=== PATIENT | female | born 1955 | race Caucasian/White ===

== ENCOUNTER 2016-12-02 12:06 | Day surgery (SDC) | payer OTHER ==
[~2016-12-02] VITALS: Ht 157.5 cm; Wt 87.1 kg
[2016-12-02] MEDS ORDERED: LEVOTHYROXINE137 MCG PO (12:32)
[2016-12-02] MEDS ORDERED: VERAPAMIL ER240 MG PO (12:32)
[2016-12-02] MEDS ORDERED: PROAIR HFA8.5 GM INH (12:33)
[2016-12-02] MEDS ORDERED: GABAPENTIN300 MG PO (12:33)
[2016-12-02] MEDS ORDERED: QVAR8.7 G1 (12:33)
[2016-12-02] MEDS ORDERED: LANSOPRAZOLE30 MG PO (12:33)
[2016-12-02] MEDS ORDERED: ALLEGRA ALLERG180 MG PO (12:34)
[2016-12-02] MEDS ORDERED: HYDROCODON-ACE1 EA10 PO (12:34)
--- NOTE | 2016-12-02 14:26 | NUR ---
12/02/16 1426 Bill Burroughs PT PASSING LARGE AMOUNTS OF AIR FROM HER COLON.
--- NOTE | 2016-12-08 01:42 | OR ---
[facility] [address], [place] [address] Signed PREOPERATIVE DIAGNOSES: Persistent left-sided abdominal pain. History of hiatal hernia repair with some amount of recurrent hiatal hernia.([facility]). POSTOPERATIVE DIAGNOSIS: Left-sided sigmoid diverticulosis. No evidence of neoplasm or inflammation. PROCEDURE: Total colonoscopy to cecum. SURGEON: Abelardo. ANESTHESIA: Intravenous sedation, fentanyl 200 mcg, Versed 7 mg. INDICATION: This is a 61-year-old, white woman is a patient of Dr. Gerardo and has numerous medical issues from the past. She has had le ft-sided chest and abdominal wall pain. CT scan showed only diverticular changes. She has undergone anti-reflux operation, Luther fundoplication twice at [facility] in [place]. Followup there has shown signs of small hiatal hernia, yet she coelho s no specific reflux symptoms or dysphagia. She had a left-sided nephrolithiasis in the past as well. She has had chronic back pain for number of years. She is admitted at this time to undergo colonoscopy to better characterize the possibility of colon as a source of her persistent pain, understand the risks of bleeding, infection and perforation. FINDINGS: The prep was good. Complete colonoscopy was undertaken to the cecum. There were numerous diverticula of the sigmoid and left colon. No sign of obstruction, active inflammation stricture or neoplasm or inflammation. PROCEDURE: The patient brought to endoscopy suite, placed in lateral decubitus position. Given intravenous sedation to the point of slurred speech and nystagmus. Digital rectal examination was normal. An Olympus video colonoscope was passed in the rectum and manipulated throughout the colon noting diverticula of the sigmoid and left colon, which were rather extensive. Scope was ultimately advanced to the cecum. Ileocecal valve and appendiceal pako fice were normal. The scope was withdrawn from that point. Examination throughout showed no sign of particular problem, specifically no colitis or polyps or cancer but upon withdrawal of scope to the left colon and sigmoid numerous diverticula once again noted. Electronically Signed By: MELANIA ASHBY MD 12/08/16 0142 PATIENT NAME: TESSIE INGRAM OPERATIVE REPORT DATE OF : 55 PHYSICIAN: MELANIA ASHBY MD REPORT #: [id number] REPORT IS CONFIDENTIAL AND NOT TO BE RELEASED WITHOUT AUTHORIZATION [facility] [address] [place] [address] [place], [place] [address] Signed Retroflexed view in the rectum was normal. The scope was removed. The patient was taken to recovery room in good condition. CONCLUDING DIAGNOSIS: Diverticular changes extensive sigmoid and left colon. Uncertain if this is the source for left-sided abdominal pain. PLAN: Recommend high-fiber diet. Fiber supplements. Citrucel 1 tablespoon each day as needed as well. Followup: She will return to see me in approximately 4 weeks. MD PRESLEY Fonseca/Rebecca /[id number] cc: Hakeem Gerardo MD Electronically Signed By: MELANIA ASHBY MD 12/08/16 014 PATIENT NAME: TESSIE INGRAM OPERATIVE REPORT DATE OF : 55 PHYSICIAN: MELANIA ASHBY MD REPORT #: [id number] REPORT IS CONFIDENTIAL AND NOT TO BE RELEASED WITHOUT AUTHORIZATION
== END 2016-12-02 14:52 | disposition home or self-care (01) ==
LOC: OPS 12:06 → DS 12:06 → OPS 13:00
PROVIDERS: Surgery
PROC: 0DJD8ZZ Inspection of Lower Intestinal Tract, Via Natural or Artificial Opening Endoscopic (ICD-10-PCS; principal; 2016-12-02 13:00)
DX: K57.30 Diverticulosis of large intestine without perforation or abscess without bleeding (principal); E66.9 Obesity, unspecified; Z90.49 Acquired absence of other specified parts of digestive tract; Z90.710 Acquired absence of both cervix and uterus; Z98.890 Other specified postprocedural states; Z96.651 Presence of right artificial knee joint; Z68.35 Body mass index [BMI] 35.0-35.9, adult; Z91.040 Latex allergy status; Z90.89 Acquired absence of other organs
CPT/HCPCS: 99152; 99153; J0694; J2250; J3010; J7120

== ENCOUNTER 2021-04-12 17:17 | Emergency (ER) | payer OTHER ==
[~2021-04-12] VITALS: Ht 157.5 cm; Wt 83.9 kg
[~2021-04-12 17:17] MED LIST: ALLEGRA ALLERG180 MG PO; BACLOFEN10 MG PO; GABAPENTIN300 MG PO; HYDROCODON-ACE1 EA10 PO; LANSOPRAZOLE30 MG PO; LEVOTHYROXINE137 MCG PO; NORCO 5-325 TA1 EACH PO; NORTRIPTYLINE H10 MG PO; PROAIR HFA8.5 GM INH; QVAR8.7 G1; ROSUVASTATIN CA10 MG PO; VERAPAMIL ER240 MG PO
[2021-04-12] MEDS ORDERED: GUAIFENESIN-CO118 ML PO (19:33)
== END 2021-04-12 19:40 | disposition home or self-care (01) ==
LOC: ED 17:17
DX: J06.9 Acute upper respiratory infection, unspecified (principal); Z20.822 Contact with and (suspected) exposure to COVID-19; J44.9 Chronic obstructive pulmonary disease, unspecified; I48.91 Unspecified atrial fibrillation; Z88.2 Allergy status to sulfonamides; Z88.5 Allergy status to narcotic agent; Z91.040 Latex allergy status; Z79.899 Other long term (current) drug therapy
CPT/HCPCS: 71045; 99283-25; C9803; U0003